=== PATIENT | male | born 1950 | race Caucasian/White ===

== ENCOUNTER → 2019-05-18 | Day surgery (SDC) | payer OTHER ==
[~2019-05-18] MED LIST: ACETAMINOPHEN 325 MG TABLET PO PRN; ALBUTEROL SULFATE 2.5 MG/3 ML NEBU. NEB PRN; ATROPINE 0.5 MG/5 ML DISP.SYRIN. IV PRN; IV RINGERS SOLUTION,LACTATED 1,000 ML IV SCH; ONDANSETRON PF 4 MG/2 ML VIAL. IV PRN; PHENOL ORAL SPRAY 177ML BOTTLE. MM PRN; PROPOFOL 40 ML IV ONE; diphenhydrAMINE 50 MG/ML VIAL IV PRN
[2019-05-18 13:51] VITALS: BP 102/65
--- NOTE | 2019-05-20 14:07 | PATHOLOGY ---
[facility] Accession Number: [id number] . 01 Material submitted: . rectum - RECTAL POLYP . 01 Clinical history: . None provided . 02 Diagnosis: Colorectal biopsies, rectal polyp: - Tubular adenoma. (JPM:jose; 05/20/2019) S 05/20/2019 0908 Local . 02 Comment: There is no high grade dysplasia or evidence of malignancy. (JPM:jose; 05/20/2019) . 02 Electronically signed: . Kurt Arora MD, Pathologist NPI- [id number] . 01 Gross description: . The specimen is received in formalin, labeled "Danilo Cueto, rectum polyp". Received are four segments of pale chand soft tissue ranging in size from 0.2 to 0.5 cm in maximum dimensions. The specimen is submitted entirely in cassette A1. ([facility]; 05/19/2019) QAC/QAC 05/19/2019 1756 Local . 02 Pathologist provided ICD-10: D12.8 . 02 CPT . 252392 Specimen Comment: A courtesy copy of this report has been sent to [phone] Specimen Comment: [phone] Specimen Comment: Report sent to / DR CHAN Performed at: 01 [facility] [address], [place], [place] [id number] MD Kenroy Alonso MD Phone: [phone] Performed at: 02 [facility] [address] [place], [place] [id number] MD Kurt Arora MD Phone: [phone]
== END ==
LOC: SURG 11:04
PROVIDERS: ATTEND Emergency Medicine
DX: Z12.11 Encounter for screening for malignant neoplasm of colon (principal); D12.8 Benign neoplasm of rectum; K57.30 Diverticulosis of large intestine without perforation or abscess without bleeding; K21.9 Gastro-esophageal reflux disease without esophagitis; F17.210 Nicotine dependence, cigarettes, uncomplicated; Z87.39 Personal history of other diseases of the musculoskeletal system and connective tissue; Z86.010 Personal history of colon polyps
CPT/HCPCS: 45385; 88305; J2704; J7120

== ENCOUNTER → 2021-03-22 | Outpatient (CLI) | payer MEDICARE, OTHER ==
[2019-05-18 13:51] VITALS: BP 102/65
--- NOTE | 2021-03-22 13:56 | RAD ---
INDICATION: Reason: LT ARM CONCERN FOR FOREIGN BODY / Spl. Instructions: PT BELIEVES NEEDLE BROKE IN ARM AFTER BOOSTER SHOT / History: COMPARISON: None. FINDINGS: Focused ultrasound is obtained of the subcutaneous soft tissues of the left upper arm at the area of concern. No drainable fluid collection or definite foreign body is seen IMPRESSION: * No definite fluid collection or foreign body seen on focused ultrasound. Electronically signed by: Art Dougherty MD (03/22/2021 1:54 PM) [id number]
== END ==
LOC: US 12:35
PROVIDERS: ATTEND Family Medicine
DX: S40.852A Superficial foreign body of left upper arm, initial encounter (principal); X58.XXXA Exposure to other specified factors, initial encounter; Y93.89 Activity, other specified; Y92.89 Other specified places as the place of occurrence of the external cause; Y99.8 Other external cause status
CPT/HCPCS: 76881